=== PATIENT | male | born 1985 | race Caucasian/White ===

== ENCOUNTER → 2020-03-28 13:21 | Outpatient (BNVA) | payer MEDICAID, SELFPAY | PROVIDERS: Family Provider Family Medicine; PCP Family Medicine; Visit Provider Specialist | DX: R29.90 Unspecified symptoms and signs involving the nervous system (principal); G40.219 Localization-related (focal) (partial) symptomatic epilepsy and epileptic syndromes with complex partial seizures, intractable, without status epilepticus; G40.109 Localization-related (focal) (partial) symptomatic epilepsy and epileptic syndromes with simple partial seizures, not intractable, without status epilepticus; G80.9 Cerebral palsy, unspecified; G80.1 Spastic diplegic cerebral palsy; Z96.89 Presence of other specified functional implants | CPT/HCPCS: 99214 ==

== ENCOUNTER → 2020-05-24 07:53 | Outpatient (BNVA) | payer MEDICAID, SELFPAY | PROVIDERS: Family Provider Family Medicine; PCP Family Medicine; Visit Provider Specialist | DX: G40.109 Localization-related (focal) (partial) symptomatic epilepsy and epileptic syndromes with simple partial seizures, not intractable, without status epilepticus (principal) | CPT/HCPCS: 99214 ==

== ENCOUNTER → 2020-07-05 08:21 | Outpatient (BNVA) | payer MEDICAID, SELFPAY | PROVIDERS: Family Provider Family Medicine; PCP Family Medicine; Visit Provider Specialist | DX: G80.1 Spastic diplegic cerebral palsy (principal); G40.109 Localization-related (focal) (partial) symptomatic epilepsy and epileptic syndromes with simple partial seizures, not intractable, without status epilepticus; Z96.89 Presence of other specified functional implants | CPT/HCPCS: 62367; 99214 ==

== ENCOUNTER → 2020-09-07 08:14 | Outpatient (BNVA) | payer MEDICAID, SELFPAY | PROVIDERS: Family Provider Family Medicine; PCP Family Medicine; Visit Provider Specialist | DX: G80.9 Cerebral palsy, unspecified (principal); G80.1 Spastic diplegic cerebral palsy; G40.219 Localization-related (focal) (partial) symptomatic epilepsy and epileptic syndromes with complex partial seizures, intractable, without status epilepticus; G40.109 Localization-related (focal) (partial) symptomatic epilepsy and epileptic syndromes with simple partial seizures, not intractable, without status epilepticus; G43.711 Chronic migraine without aura, intractable, with status migrainosus; Z96.89 Presence of other specified functional implants | CPT/HCPCS: 62370; 95970; 99214 ==

== ENCOUNTER → 2020-12-28 07:53 | Outpatient (BNVA) | payer MEDICAID, SELFPAY | PROVIDERS: Family Provider Family Medicine; PCP Family Medicine; Visit Provider Specialist | DX: G40.109 Localization-related (focal) (partial) symptomatic epilepsy and epileptic syndromes with simple partial seizures, not intractable, without status epilepticus (principal); G80.1 Spastic diplegic cerebral palsy; Z96.89 Presence of other specified functional implants; Z96.82 Presence of neurostimulator | CPT/HCPCS: 62370; 95971; 99215 ==

== ENCOUNTER → 2021-04-25 11:41 | Outpatient (BNVA) | payer MEDICAID, SELFPAY | PROVIDERS: Family Provider Family Medicine; PCP Family Medicine; Visit Provider Specialist | DX: G40.219 Localization-related (focal) (partial) symptomatic epilepsy and epileptic syndromes with complex partial seizures, intractable, without status epilepticus (principal); G80.1 Spastic diplegic cerebral palsy; Z71.89 Other specified counseling; Z96.82 Presence of neurostimulator; Z96.89 Presence of other specified functional implants | CPT/HCPCS: 62370; 95971; 99215 ==

== ENCOUNTER → 2021-08-21 08:03 | Outpatient (BNVA) | payer MEDICAID, SELFPAY | PROVIDERS: Family Provider Family Medicine; PCP Family Medicine; Visit Provider Specialist | DX: G40.109 Localization-related (focal) (partial) symptomatic epilepsy and epileptic syndromes with simple partial seizures, not intractable, without status epilepticus (principal); G80.1 Spastic diplegic cerebral palsy; Z96.82 Presence of neurostimulator; Z96.89 Presence of other specified functional implants | CPT/HCPCS: 62370; 95970; 99214 ==

== ENCOUNTER → 2021-12-24 09:15 | Outpatient (BNVA) | payer MEDICAID, SELFPAY | PROVIDERS: Family Provider Family Medicine; PCP Family Medicine; Visit Provider Specialist | DX: Z96.82 Presence of neurostimulator (principal); G40.109 Localization-related (focal) (partial) symptomatic epilepsy and epileptic syndromes with simple partial seizures, not intractable, without status epilepticus; G40.219 Localization-related (focal) (partial) symptomatic epilepsy and epileptic syndromes with complex partial seizures, intractable, without status epilepticus; Z96.89 Presence of other specified functional implants | CPT/HCPCS: 62370; 95971; 99214 ==

== ENCOUNTER → 2022-04-23 07:42 | Outpatient (BNVA) | payer MEDICAID, SELFPAY | PROVIDERS: Family Provider Family Medicine; PCP Family Medicine; Visit Provider Specialist | DX: Z45.1 Encounter for adjustment and management of infusion pump (principal); Z45.42 Encounter for adjustment and management of neurostimulator; G40.219 Localization-related (focal) (partial) symptomatic epilepsy and epileptic syndromes with complex partial seizures, intractable, without status epilepticus; G40.419 Other generalized epilepsy and epileptic syndromes, intractable, without status epilepticus; G80.1 Spastic diplegic cerebral palsy; Z96.89 Presence of other specified functional implants; Z96.82 Presence of neurostimulator | CPT/HCPCS: 62370; 95971; 99214 ==

== ENCOUNTER → 2022-08-21 07:54 | Outpatient (BNVA) | payer MEDICAID, SELFPAY | PROVIDERS: Family Provider Family Medicine; PCP Family Medicine; Visit Provider Specialist | DX: G40.109 Localization-related (focal) (partial) symptomatic epilepsy and epileptic syndromes with simple partial seizures, not intractable, without status epilepticus (principal); G80.1 Spastic diplegic cerebral palsy; Z96.89 Presence of other specified functional implants; Z96.82 Presence of neurostimulator; Z45.1 Encounter for adjustment and management of infusion pump; Z45.42 Encounter for adjustment and management of neurostimulator | CPT/HCPCS: 62370; 95970; 99215 ==

== ENCOUNTER → 2022-12-17 08:01 | Outpatient (BNVA) | payer MEDICAID, SELFPAY | PROVIDERS: Family Provider Family Medicine; PCP Family Medicine; Visit Provider Specialist | DX: G40.219 Localization-related (focal) (partial) symptomatic epilepsy and epileptic syndromes with complex partial seizures, intractable, without status epilepticus (principal); G80.1 Spastic diplegic cerebral palsy; Z96.89 Presence of other specified functional implants; Z96.82 Presence of neurostimulator; Z45.42 Encounter for adjustment and management of neurostimulator; Z45.1 Encounter for adjustment and management of infusion pump | CPT/HCPCS: 62370; 95971; 99214 ==

== ENCOUNTER → 2023-02-27 14:21 | Outpatient (BNVA) | payer MEDICAID, SELFPAY | PROVIDERS: Family Provider Family Medicine; PCP Family Medicine; Visit Provider Specialist | DX: G40.219 Localization-related (focal) (partial) symptomatic epilepsy and epileptic syndromes with complex partial seizures, intractable, without status epilepticus (principal); G80.1 Spastic diplegic cerebral palsy; Z45.42 Encounter for adjustment and management of neurostimulator; Z96.82 Presence of neurostimulator | CPT/HCPCS: 95970; 99214 ==

== ENCOUNTER → 2023-04-17 08:03 | Outpatient (BNVA) | payer MEDICAID, SELFPAY | PROVIDERS: Family Provider Family Medicine; PCP Family Medicine; Visit Provider Specialist | DX: G40.219 Localization-related (focal) (partial) symptomatic epilepsy and epileptic syndromes with complex partial seizures, intractable, without status epilepticus (principal); G80.9 Cerebral palsy, unspecified; Z96.89 Presence of other specified functional implants; Z96.82 Presence of neurostimulator | CPT/HCPCS: 36415; 62370; 80053; 84443; 85025; 95970; 99214 ==

== ENCOUNTER 2023-04-25 09:16 | Outpatient (CLI) | payer MEDICAID, SELFPAY | END 2023-04-25 09:17 | disposition home or self-care (01) | PROVIDERS: Family Provider Family Medicine; PCP Family Medicine; Visit Provider Specialist | DX: E03.9 Hypothyroidism, unspecified (principal) | CPT/HCPCS: 36415; 84443 ==

== ENCOUNTER → 2023-08-14 11:10 | Outpatient (BNVA) | payer MEDICAID, SELFPAY | PROVIDERS: Family Provider Family Medicine; PCP Family Medicine; Visit Provider Specialist | DX: G80.1 Spastic diplegic cerebral palsy (principal); Z96.89 Presence of other specified functional implants; G40.109 Localization-related (focal) (partial) symptomatic epilepsy and epileptic syndromes with simple partial seizures, not intractable, without status epilepticus | CPT/HCPCS: 62370; 95970; 99214 ==

== ENCOUNTER → 2023-11-13 10:57 | Outpatient (BNVA) | payer MEDICAID, SELFPAY | PROVIDERS: Family Provider Family Medicine; PCP Family Medicine; Visit Provider Specialist | DX: G40.109 Localization-related (focal) (partial) symptomatic epilepsy and epileptic syndromes with simple partial seizures, not intractable, without status epilepticus (principal); G80.9 Cerebral palsy, unspecified; G80.1 Spastic diplegic cerebral palsy; Z96.89 Presence of other specified functional implants; R29.90 Unspecified symptoms and signs involving the nervous system | CPT/HCPCS: 99214 ==

== ENCOUNTER → 2024-03-05 11:09 | Outpatient (BNVA) | payer MEDICAID, SELFPAY | PROVIDERS: Family Provider Family Medicine; PCP Family Medicine; Visit Provider Specialist | DX: G40.219 Localization-related (focal) (partial) symptomatic epilepsy and epileptic syndromes with complex partial seizures, intractable, without status epilepticus (principal); G80.1 Spastic diplegic cerebral palsy; Z96.89 Presence of other specified functional implants; G40.109 Localization-related (focal) (partial) symptomatic epilepsy and epileptic syndromes with simple partial seizures, not intractable, without status epilepticus; R29.90 Unspecified symptoms and signs involving the nervous system; Z97.8 Presence of other specified devices; G80.0 Spastic quadriplegic cerebral palsy; Z98.2 Presence of cerebrospinal fluid drainage device | CPT/HCPCS: 95970; 99214; 99215 ==

== ENCOUNTER → 2025-06-16 10:16 | Outpatient (BNVA) | payer MEDICAID, SELFPAY | PROVIDERS: Family Provider Family Medicine; PCP Family Medicine; Visit Provider Specialist | DX: G40.219 Localization-related (focal) (partial) symptomatic epilepsy and epileptic syndromes with complex partial seizures, intractable, without status epilepticus (principal); G80.1 Spastic diplegic cerebral palsy; G80.9 Cerebral palsy, unspecified; Z96.89 Presence of other specified functional implants; G40.109 Localization-related (focal) (partial) symptomatic epilepsy and epileptic syndromes with simple partial seizures, not intractable, without status epilepticus; R29.90 Unspecified symptoms and signs involving the nervous system; Z97.8 Presence of other specified devices | CPT/HCPCS: 62370; 95970; 99214 ==